=== PATIENT | female | born 1945 | race Caucasian/White ===

== ENCOUNTER → 2016-10-31 | Outpatient (CLI) | payer OTHER ==
[~2016-10-31] MED LIST: LISINOPRIL10 MG PO; NORCO 10/3251 TAB PO
--- NOTE | ~2016-10-31 | MY29 ---
[facility] A Service of [facility] RADIOLOGY TEXT RESULTS PATIENT: MONO BRIONES LOCATION: [facility] : 41 UNIT #: [id number] AGE: [address]: Caitlin Nolasco MD SEX: F ORDER DR: [id number] [facility]. [place], [place] [address] [id number] O MR#: [id number] Acc #: [id number] NAME: MONO BRIONES : 1945 SEX: F STUDY DATE/TIME: 10/31/2016 12:18 UNIT: [facility] ROOM: STUDY DESCRIPTION: MY SAIMA SCREENING W/ CAD BILAT Attending Physician: Caitlin Nolasco M.D. Referring Physician: Caitlin Nolasco M.D. Ordering Physician: Caitlin Nolasco M.D. Primary Care Physician: Caitlin Nolasco M.D. MEDICAL IMAGING REPORT This report is preliminary unless electronic signature is present EXAM Digital screening mammogram with CAD INDICATIONS Routine screening. PROCEDURE Bilateral CC and MLO views obtained on a digital mammography unit FDA-approved CAD device utilized. COMPARISON 01/05/2015 FINDINGS Breasts are predominately fat replaced. There is no dominant mass or suspicious calcification. IMPRESSION Negative screening mammogram screen interval in 1 year is suggested. Patients over the age of 40 are entered into a reminder system with target due date for the next mammogram. A result letter will also be sent to the patient. BIRADS: 1, negative. Dictated by... Miguel Amaya M.D. THIS IS AN ELECTRONICALLY VERIFIED REPORT Miguel Amaya M.D. at 11/01/2016 7:14 AM EED/rnr [facility] A Service of [facility] RADIOLOGY TEXT RESULTS PATIENT: MONO BRIONES LOCATION: [facility] : 41 UNIT #: [id number] AGE: [address]: Caitlin Nolasco MD SEX: F ORDER DR: TD: 10/31/2016 20:16 JOB #: [id number] MEDICAL IMAGING REPORT Page 1 of 1 COPY
--- NOTE | ~2016-10-31 | BD1 ---
[facility] A Service of [facility] RADIOLOGY TEXT RESULTS PATIENT: MONO BRIONES LOCATION: [facility] : 43 UNIT #: [id number] AGE: [address]: Caitlin Nolasco MD SEX: F ORDER DR: [id number] [facility] [address] [place], [place] [address] [id number] O MR#: [id number] Acc #: [id number] NAME: MONO BRIONES : 1945 SEX: F STUDY DATE/TIME: 10/31/2016 12:04 UNIT: [facility] ROOM: STUDY DESCRIPTION: BD Dexa Bone Dens 1+ Site Attending Physician: Caitlin Nolasco M.D. Referring Physician: Caitlin Nolasco M.D. Ordering Physician: Caitlin Nolasco M.D. Primary Care Physician: Caitlin Nolasco M.D. MEDICAL IMAGING REPORT This report is preliminary unless electronic signature is present EXAM DXA scan HISTORY Post menopausal osteoporosis. TECHNIQUE Bone mineral density was measured over the lumbar spine and left hip. FINDINGS In the lumbar spine, bone mineral density averages 0.860 g/cm2 with a T-score of -1.7. At the left hip, bone mineral density totals 0.950 g/cm2 with a T-score of 0.1. IMPRESSION Mild osteopenic changes in the lumbar spine. Dictated by... Rubio Patel M.D. THIS IS AN ELECTRONICALLY VERIFIED REPORT Rubio Patel M.D. at 11/01/2016 4:41 PM CEDRIC/mary TD: 11/01/2016 11:12 JOB #: [id number] MEDICAL IMAGING REPORT Page 1 of 1 COPY
== END | disposition home or self-care (01) ==
LOC: CWCC 11:44
DX: Z13.820 Encounter for screening for osteoporosis (principal); Z12.31 Encounter for screening mammogram for malignant neoplasm of breast; Z78.0 Asymptomatic menopausal state; M85.88 Other specified disorders of bone density and structure, other site
CPT/HCPCS: 77080; G0202